=== PATIENT | female | born 2000 | race Hispanic/Latino ===

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

== ENCOUNTER 2021-05-01 15:38 | Observation (INO) | payer MEDICAID ==
[~2021-05-01] VITALS: Ht 149.9 cm; Wt 70.3 kg
[2021-05-01 15:39] VITALS: BP 117/73
[2021-05-01 16:13] LABS: APPEARANCE,URINE Cloudy (CLEAR); BILIRUBIN,URINE Negative (NEGATIVE); COLOR,URINE Yellow (YELLOW); GLUCOSE, URINE (UA) Negative (NEGATIVE); KETONES,URINE Negative (NEGATIVE); LEUKOCYTE ESTERASE ,URINE Moderate (NEGATIVE); NITRATE,URINE Negative (NEGATIVE); OCCULT BLOOD,URINE Negative (NEGATIVE); PROTEIN,URINE Negative (NEGATIVE); UROBILINOGEN,URINE 0.2 mg/dL (0.2-1.0)
[2021-05-01 16:20] LABS: AMPHET/METH SCREEN,URINE NEGATIVE (NEGATIVE); BARBITURATE SCREEN, URINE NEGATIVE (NEGATIVE); BENZODIAZEPINES SCREEN,URINE NEGATIVE (NEGATIVE); CANNABINOID SCREEN,URINE NEGATIVE (NEGATIVE); COCAINE SCREEN,URINE NEGATIVE (NEGATIVE); OPIATE SCREEN,URINE NEGATIVE (NEGATIVE); PHENCYCLIDINE SCREEN,URINE NEGATIVE (NEGATIVE)
[2021-05-01] MEDS ORDERED: LACTATED RINGERS 1000ML IV PRN (16:30)
[2021-05-01 16:32] LABS: BACTERIA,URINE Few /HPF (None Seen); MUCUS,URINE Few LPF (None Seen); RBC,URINE 0-1 /HPF (0-1); SQUAMOUS EPITHELIAL CELL,UR Many /HPF (0-2)
[2021-05-01] MEDS ORDERED: FLUCONAZOLE 100 MG TAB PO ONE (17:00)
[2021-05-01] MEDS ORDERED: TERBUTALINE SULFATE VIAL 1MG/ML SQ SCH (17:00)
== END 2021-05-01 18:45 | disposition home or self-care (01) ==
LOC: EDH 15:38 → LDH 15:40
PROVIDERS: ADMIT Specialist; ATTEND Specialist
DX: O60.03 Preterm labor without delivery, third trimester (principal); Z3A.34 34 weeks gestation of pregnancy; Z79.899 Other long term (current) drug therapy
CPT/HCPCS: 59025; 80305; 81001; 87088; 96360; 96372; G0378; G0379; J3105; J7120

== ENCOUNTER 2021-05-04 10:23 | Observation (INO) | payer MEDICAID ==
[~2021-05-04] VITALS: Ht 149.9 cm; Wt 69.9 kg
[2021-05-04 10:50] VITALS: BP 111/69
[2021-05-04 10:57] LABS: APPEARANCE,URINE Clear (CLEAR); BILIRUBIN,URINE Negative (NEGATIVE); COLOR,URINE Yellow (YELLOW); GLUCOSE, URINE (UA) Negative (NEGATIVE); KETONES,URINE Negative (NEGATIVE); LEUKOCYTE ESTERASE ,URINE Trace (NEGATIVE); NITRATE,URINE Negative (NEGATIVE); OCCULT BLOOD,URINE Negative (NEGATIVE); PROTEIN,URINE Negative (NEGATIVE); UROBILINOGEN,URINE 0.2 mg/dL (0.2-1.0)
[2021-05-04 11:00] LABS: BACTERIA,URINE Rare /HPF (None Seen); RBC,URINE 0-1 /HPF (0-1); SQUAMOUS EPITHELIAL CELL,UR Rare /HPF (0-2); WBC,URINE 0-1 /HPF (0-1)
[2021-05-04] MEDS ORDERED: LACTATED RINGERS 1000ML 1,000 ML IV SCH (12:13)
[2021-05-04] MEDS ORDERED: LACTATED RINGERS 1000ML IV SCH (12:13)
[2021-05-04 14:40] LABS: AMPHET/METH SCREEN,URINE NEGATIVE (NEGATIVE); BARBITURATE SCREEN, URINE NEGATIVE (NEGATIVE); BENZODIAZEPINES SCREEN,URINE NEGATIVE (NEGATIVE); CANNABINOID SCREEN,URINE NEGATIVE (NEGATIVE); COCAINE SCREEN,URINE NEGATIVE (NEGATIVE); OPIATE SCREEN,URINE NEGATIVE (NEGATIVE); PHENCYCLIDINE SCREEN,URINE NEGATIVE (NEGATIVE)
== END 2021-05-04 13:15 | disposition short-term general hospital (02) ==
LOC: EDH 10:23 → LDH 10:24
PROVIDERS: ADMIT Specialist; ATTEND Specialist
DX: O60.03 Preterm labor without delivery, third trimester (principal); Z3A.35 35 weeks gestation of pregnancy
CPT/HCPCS: 80305; 81001; 96360; G0378 ×3; G0379; J7120

== ENCOUNTER 2021-05-15 22:31 | Observation (INO) | payer MEDICAID ==
[~2021-05-15] VITALS: Ht 149.9 cm; Wt 74.8 kg
[2021-05-15 22:33] VITALS: BP 127/85
[2021-05-15 23:01] LABS: APPEARANCE,URINE Cloudy (CLEAR); BILIRUBIN,URINE Negative (NEGATIVE); COLOR,URINE Yellow (YELLOW); GLUCOSE, URINE (UA) Negative (NEGATIVE); KETONES,URINE Negative (NEGATIVE); LEUKOCYTE ESTERASE ,URINE Moderate (NEGATIVE); NITRATE,URINE Negative (NEGATIVE); OCCULT BLOOD,URINE Negative (NEGATIVE); PH,URINE 6.5 (5.0-8.0); PROTEIN,URINE Negative (NEGATIVE); UROBILINOGEN,URINE 0.2 mg/dL (0.2-1.0)
[2021-05-15 23:21] LABS: RBC,URINE 0-1 /HPF (0-1)
[2021-05-15 23:22] LABS: BACTERIA,URINE Few /HPF (None Seen); SQUAMOUS EPITHELIAL CELL,UR Many /HPF (0-2)
[2021-05-16] MEDS ORDERED: LACTATED RINGERS 1000ML IV SCH
[2021-05-16] MEDS ORDERED: TERBUTALINE SULFATE VIAL 1MG/ML SQ PRN
[2021-05-16] MEDS ORDERED: ONDANSETRON 4MG INJ IVP ONE (01:30)
== END 2021-05-16 02:30 | disposition home or self-care (01) ==
LOC: EDH 22:31 → LDH 22:32
PROVIDERS: ADMIT Specialist; ATTEND Specialist
DX: O62.9 Abnormality of forces of labor, unspecified (principal); O26.893 Other specified pregnancy related conditions, third trimester; R60.0 Localized edema; R12 Heartburn; Z3A.36 36 weeks gestation of pregnancy
CPT/HCPCS: 81001; 87088; 96361; 96372; 96374; G0378 ×2; G0379; J2405; J3105; J7120; 96360

== ENCOUNTER 2021-05-23 06:11 | Inpatient (IN) | payer MEDICAID ==
[~2021-05-23] VITALS: Ht 149.9 cm; Wt 75.7 kg
[2021-05-23] MEDS ORDERED: OXYTOCIN-LR 20 UNITS/1000 ML 1,000 ML IV SCH ×2 (07:00→07:30)
[2021-05-23 07:04] LABS: HEMATOCRIT 29.2 % (36-48); MEAN CORPUSCULAR HEMOGLOBIN 25.1 pg (27.0-33.0); MEAN CORPUSCULAR HGB CONC 31.8 g/dL (32.0-36.0); MEAN CORPUSCULAR VOLUME 78.9 fL (80-100); NUCLEATED RED BLOOD CELLS 0.6 % (0.0-0.19); RED BLOOD CELL COUNT(AUTO) 3.7 MIL/uL (4.00-5.50); RED CELL DISTRIBUTION WIDTH 16.5 % (11.0-15.5); WHITE BLOOD COUNT (AUTO) 10.5 K/uL (4.8-10.8)
[2021-05-23 07:11] LABS: INR 0.97 (0.85-1.15); PROTHROMBIN TIME 10.6 SEC (9.6-11.6)
[2021-05-23 07:12] LABS: PARTIAL THROMBOPLASTIN TIME 26.5 SEC (26.3-35.5)
[2021-05-23 07:15] LABS: APPEARANCE,URINE CLEAR (CLEAR); BILIRUBIN,URINE NEGATIVE (NEGATIVE); COLOR,URINE YELLOW (YELLOW); GLUCOSE, URINE (UA) NEGATIVE (NEGATIVE); KETONES,URINE NEGATIVE (NEGATIVE); LEUKOCYTE ESTERASE ,URINE NEGATIVE (NEGATIVE); NITRATE,URINE NEGATIVE (NEGATIVE); OCCULT BLOOD,URINE NEGATIVE (NEGATIVE); PH,URINE 6.5 (5.0-8.0); PROTEIN,URINE NEGATIVE (NEGATIVE); UROBILINOGEN,URINE 0.2 mg/dL (0.2-1.0)
[2021-05-23 07:30] LABS: ALBUMIN 2.4 g/dL (3.5-5.0); BILIRUBIN,TOTAL 0.2 mg/dL (0.2-1.0); CREATININE 0.6 mg/dL (0.5-1.5); POTASSIUM 3.6 mmol/L (3.5-5.1); TOTAL PROTEIN, SERUM 6.1 g/dL (6.0-8.3); URIC ACID 5.4 mg/dL (2.6-7.2)
[2021-05-23] MEDS ORDERED: MEPERIDINE-PF 50 MG/ML SYG IVP PRN (07:30)
[2021-05-23] MEDS ORDERED: ROPIVACAINE 0.2% 100ML VIAL 100 ML EP SCH (07:30)
[2021-05-23] MEDS ORDERED: NALOXONE HCL 0.4 MG/1 ML ML IV PRN (07:30)
[2021-05-23] MEDS ORDERED: LACTATED RINGERS 500 ML 500 ML IV PRN (07:30)
[2021-05-23] MEDS ORDERED: PROMETHAZINE HCL 25 MG/ML 1ML AMPULE IM PRN (07:30)
[2021-05-23] MEDS ORDERED: EPHEDRINE SULFATE 50 MG/ML AMPULE IVP PRN (07:30)
[2021-05-23] MEDS: LACTATED RINGERS 1000ML 1,000 ML IV PRN (15:43)
[2021-05-23] MEDS ORDERED: MISOPROSTOL 100 MCG TABLET VG SCH (17:00)
[2021-05-23] MEDS ORDERED: MISOPROSTOL 25 MCG TABLET VG SCH (17:00)
[2021-05-24] MEDS: LACTATED RINGERS 1000ML 1,000 ML IV PRN ×2 (00:37→08:02)
[2021-05-24] MEDS ORDERED: MISOPROSTOL 25 MCG TABLET ONE (00:55)
[2021-05-24] MEDS ORDERED: CEFAZOLIN SODIUM 1 GM VIAL ONE (13:40)
[2021-05-24] MEDS ORDERED: LIDOCAINE 2%-EPI 1:200,000 20 ML VIAL IJ ONE (13:44)
[2021-05-24] MEDS ORDERED: ONDANSETRON 4MG INJ ONE (13:44)
[2021-05-24] MEDS ORDERED: OXYTOCIN 10 UNIT/1ML 10ML VIAL ONE (13:44)
[2021-05-24] MEDS ORDERED: CEFAZOLIN SODIUM 2 GM VIAL IV ONE (13:55)
[2021-05-24] MEDS ORDERED: CEFAZOLIN SODIUM 1 GM VIAL IVP PRN (14:00)
[2021-05-24] MEDS ORDERED: CARBOPROST TROMETHAMINE 250 MCG/ML AMP IM ONE (14:19)
[2021-05-24] MEDS ORDERED: MISOPROSTOL 200 MCG TABLET ONE (14:20)
[2021-05-24] MEDS ORDERED: MORPHINE PF 100MG/10ML AMP IV ONE (14:24)
[2021-05-24] MEDS ORDERED: MIDAZOLAM HCL 1 MG/ML 2ML VIAL ONE (14:25)
[2021-05-24] MEDS ORDERED: 0.9%NACL 10ML VIAL IVP PRN (15:00)
[2021-05-24] MEDS ORDERED: MEPERIDINE-PF 75 MG/ML SYG IM PRN (15:00)
[2021-05-24] MEDS ORDERED: PROMETHAZINE HCL 25 MG/ML 1ML AMPULE IM PRN (15:00)
[2021-05-24] MEDS ORDERED: OXYTOCIN-LR 20 UNITS/1000 ML 1,000 ML IV PRN (15:00)
[2021-05-24 17:30] VITALS: BP_SYST 138; BP_SYST 141; BP_DIAS 100; BP_DIAS 92
[2021-05-24] MEDS ORDERED: NALOXONE HCL 0.4 MG/1 ML ML IVP PRN ×3 (18:00)
[2021-05-24] MEDS ORDERED: DiphenhydrAMINE HCL 50 MG/ML VIAL IVP PRN (18:00)
[2021-05-24] MEDS ORDERED: ONDANSETRON 4MG INJ IVP PRN (18:00)
[2021-05-24] MEDS ORDERED: EPHEDRINE SULFATE 50 MG/ML AMPULE IVP PRN (18:00)
[2021-05-24 18:20] LABS: BASOPHILS % (AUTO) 0.2 % (0.0-5.0); EOSINOPHILS % (AUTO) 0.1 % (0.0-8.0); HEMATOCRIT 27.7 % (36-48); LYMPHOCYTES % (AUTO) 10.3 % (21.0-51.0); MEAN CORPUSCULAR HEMOGLOBIN 24.4 pg (27.0-33.0); MEAN CORPUSCULAR VOLUME 78.5 fL (80-100); NEUTROPHILS % (AUTO) 83.7 % (40.0-77.0); NUCLEATED RED BLOOD CELLS 0.1 % (0.0-0.19); PLATELET COUNT (AUTO) 211 K/uL (130-400); RED BLOOD CELL COUNT(AUTO) 3.53 MIL/uL (4.00-5.50); RED CELL DISTRIBUTION WIDTH 16.8 % (11.0-15.5); WHITE BLOOD COUNT (AUTO) 18.2 K/uL (4.8-10.8)
[2021-05-24 19:16] VITALS: BP 131/95
[2021-05-24] MEDS ORDERED: ACETAMINOPHEN WITH CODEINE 1 TAB TAB PO PRN (20:00)
[2021-05-24 23:10] VITALS: BP 132/85
[2021-05-24] MEDS: DEXTROSE 5 %-0.45 % NACL 1,000 ML IV PRN (23:36)
[2021-05-25] VITALS (9 sets, daily range): BP systolic 109–128; BP diastolic 62–90
[2021-05-25] MEDS: DEXTROSE 5 %-0.45 % NACL 1,000 ML IV PRN (06:09)
[2021-05-25 06:55] LABS: MEAN CORPUSCULAR HEMOGLOBIN 24.5 pg (27.0-33.0); MEAN CORPUSCULAR HGB CONC 31.9 g/dL (32.0-36.0); MEAN CORPUSCULAR VOLUME 76.7 fL (80-100); NUCLEATED RED BLOOD CELLS 0.2 % (0.0-0.19); RED BLOOD CELL COUNT(AUTO) 2.49 MIL/uL (4.00-5.50); RED CELL DISTRIBUTION WIDTH 16.4 % (11.0-15.5); WHITE BLOOD COUNT (AUTO) 13.2 K/uL (4.8-10.8)
[2021-05-25 07:02] LABS: HEMATOCRIT 19.1 % (36-48)
[2021-05-25] MEDS ORDERED: ACETAMINOPHEN 500 MG TABLET PO PRN ×2 (09:30→17:30)
[2021-05-25] MEDS ORDERED: HYDROCODONE/ACETAMINOPHEN 5/325 MG TAB PO PRN (09:30)
[2021-05-25] MEDS ORDERED: ACETAMINOPHEN WITH CODEINE 1 TAB TAB PO PRN (09:30)
[2021-05-25] MEDS ORDERED: BISACODYL 10 MG SUPP.RECT RC PRN (09:30)
[2021-05-25] MEDS: IBUPROFEN 600 MG TABLET PO PRN (16:37)
[2021-05-25 18:22] LABS: HEMATOCRIT 24.9 % (36-48)
[2021-05-25] MEDS: DOCUSATE SODIUM 100 MG CAP PO SCH (21:18)
[2021-05-25] MEDS: SIMETHICONE 80 MG TAB.CHEW PO PRN (21:18)
[2021-05-26 03:13] VITALS: BP 135/82
[2021-05-26] MEDS: IBUPROFEN 600 MG TABLET PO PRN (07:36)
[2021-05-26 07:48] VITALS: BP 127/74
[2021-05-26] MEDS: SIMETHICONE 80 MG TAB.CHEW PO PRN (11:06)
[2021-05-26] MEDS: DOCUSATE SODIUM 100 MG CAP PO SCH (11:06)
[2021-05-26 11:20] VITALS: BP 109/66
[2021-05-26 17:00] VITALS: BP 116/83
== END 2021-05-26 18:10 | disposition home or self-care (01) | DRG 540 ==
LOC: LDH 06:11 → WSH 05-24 17:20
PROVIDERS: ADMIT Specialist; ATTEND Specialist
PROC: 10D00Z1 Extraction of Products of Conception, Low, Open Approach (ICD-10-PCS; principal; 2021-05-24 13:45)
PROC: 30233N1 Transfusion of Nonautologous Red Blood Cells into Peripheral Vein, Percutaneous Approach (ICD-10-PCS; 2021-05-25)
DX: O62.2 Other uterine inertia (principal); Z37.0 Single live birth; Z3A.38 38 weeks gestation of pregnancy
CPT/HCPCS: 36415; 59510; 80053; 81003; 84550; 85014; 85018; 85025; 85027; 85384; 85610; 85730; 86592; 86850; 86900; 86901; 86923; 87340; A4314; A4344; G0378; J0690; J2175; J2250; J2274; J2405; J2550; J2590; J2795; J3490; J7120; P9016

== ENCOUNTER 2022-02-19 00:48 | Emergency (ER) | payer MEDICAID ==
[~2022-02-19] VITALS: Ht 149.9 cm; Wt 60.8 kg
[2022-02-19 01:17] LABS: BASOPHILS % (AUTO) 0.5 % (0.0-5.0); EOSINOPHILS % (AUTO) 1.3 % (0.0-8.0); HEMATOCRIT 40.2 % (36-48); LYMPHOCYTES % (AUTO) 29.2 % (21.0-51.0); MEAN CORPUSCULAR HEMOGLOBIN 25.6 pg (27.0-33.0); MEAN CORPUSCULAR HGB CONC 32.1 g/dL (32.0-36.0); MEAN CORPUSCULAR VOLUME 79.9 fL (80-100); MONOCYTES % (AUTO) 6.2 % (3.0-13.0); NEUTROPHILS % (AUTO) 62.6 % (40.0-77.0); PLATELET COUNT (AUTO) 322 K/uL (130-400); RED BLOOD CELL COUNT(AUTO) 5.03 MIL/uL (4.00-5.50); RED CELL DISTRIBUTION WIDTH 14.9 % (11.0-15.5); WHITE BLOOD COUNT (AUTO) 11.1 K/uL (4.8-10.8)
[2022-02-19 01:25] LABS: CREATININE 0.9 mg/dL (0.5-1.5); POTASSIUM 3.7 mmol/L (3.5-5.1)
[2022-02-19] MEDS ORDERED: ACETAMINOPHEN 500 MG TABLET PO ONE (01:30)
[2022-02-19 01:32] LABS: ALBUMIN 3.9 g/dL (3.5-5.0); TOTAL PROTEIN, SERUM 7.7 g/dL (6.0-8.3)
[2022-02-19 03:01] LABS: APPEARANCE,URINE CLEAR (CLEAR); BILIRUBIN,URINE NEGATIVE (NEGATIVE); COLOR,URINE LIGHT-YELLOW (YELLOW); GLUCOSE, URINE (UA) NEGATIVE (NEGATIVE); KETONES,URINE NEGATIVE (NEGATIVE); LEUKOCYTE ESTERASE ,URINE NEGATIVE Leu/uL (NEGATIVE); NITRATE,URINE NEGATIVE (NEGATIVE); OCCULT BLOOD,URINE NEGATIVE (NEGATIVE); PH,URINE 6.5 (5.0-8.0); PROTEIN,URINE NEGATIVE (NEGATIVE); UROBILINOGEN,URINE 0.2 mg/dL (0.2-1.0)
[2022-02-19 03:48] VITALS: BP 124/74
== END 2022-02-19 03:56 | disposition home or self-care (01) ==
LOC: EDH 00:48
DX: B34.9 Viral infection, unspecified (principal); R50.9 Fever, unspecified; Z20.822 Contact with and (suspected) exposure to COVID-19
CPT/HCPCS: 99283; 87635; 80053; 85025; 87880; 87804 ×2; 81003; 81025; 36415; C9803